=== PATIENT | male | born 1960 | race Caucasian/White ===

== ENCOUNTER → 2018-07-30 | Outpatient (REF) | payer MEDICARE, OTHER ==
[2018-07-30 16:12] LABS: BASO # 0.1 10^3/uL (0.0-0.2); BASO % 0.7 % (0.0-1.0); EOS # 0.5 10^3/uL (0.0-0.50); EOS % 5.1 % (0.0-3.0); HEMATOCRIT 38.8 % (42.0-52.0); LYMPH # 1.5 10^3/uL (1.5-4.5); LYMPH % 13.8 % (24.0-44.0); MEAN CORPUSCULAR HEMOGLOBIN 28.6 pg (27.0-33.0); MEAN CORPUSCULAR HGB CONC 30.9 g/dl (32.0-36.5); MEAN CORPUSCULAR VOLUME 92.6 fl (80.0-96.0); MONO # 1.1 10^3/uL (0.0-0.8); MONO % 10.7 % (0.0-5.0); NEUTROPHILS # 7.3 10^3/uL (1.8-7.7); PLATELET COUNT, AUTOMATED 246 10^3/uL (150-450); RED BLOOD COUNT 4.19 10^6/uL (4.30-6.10); WHITE BLOOD COUNT 10.5 10^3/uL (4.0-10.0)
[2018-07-30 16:30] LABS: ALBUMIN 3.9 GM/DL (3.2-5.2); ALT/SGPT 52 U/L (12-78); BILIRUBIN,TOTAL 0.2 MG/DL (0.2-1.0); BLOOD UREA NITROGEN 24 MG/DL (7-18); C REACTIVE PROTEIN QUANTITATIV 0.92 MG/DL (0.00-0.30); CALCIUM LEVEL 8.6 MG/DL (8.5-10.1); CARBON DIOXIDE LEVEL 31 MEQ/L (21-32); CHLORIDE LEVEL 106 MEQ/L (98-107); CREATININE FOR GFR 1.48 MG/DL (0.70-1.30); GLOMERULAR FILTRATION RATE 52.2 (>56); GLUCOSE, FASTING 181 MG/DL (70-100); IMMUNOGLOBULIN A 315 MG/DL (70-400); IMMUNOGLOBULIN G 1160 MG/DL (681-1648); IMMUNOGLOBULIN M 97 MG/DL (40-230); POTASSIUM SERUM 5.5 MEQ/L (3.5-5.1); SODIUM LEVEL 140 MEQ/L (136-145); TOTAL PROTEIN 7.5 GM/DL (6.4-8.2)
[2018-07-30 17:04] LABS: ERYTHROCYTE SEDIMENTATION RATE 42 mm/hr (0-20)
[2018-07-30 17:08] LABS: HIV 1&2 SCREEN CENTAUR NEGATIVE (NEGATIVE)
[2018-08-02 08:06] LABS: IgG SERUM (part of Subclasses) 1041 mg/dL (700-1600); IgG Subclass 1 500 mg/dL (248-810); IgG Subclass 2 159 mg/dL (130-555); IgG Subclass 3 26 mg/dL (15-102); IgG Subclass 4 27 mg/dL (2-96)
== END ==
LOC: M SFHCPLAZ 13:17
PROVIDERS: ATTEND Internal Medicine Infectious Disease
DX: L03.90 Cellulitis, unspecified (principal); M46.46 Discitis, unspecified, lumbar region
CPT/HCPCS: 36415; 80053; 82784; 82787; 85025; 85652; 86140; 87070; 87077; 87186; 87389; G0463

== ENCOUNTER → 2018-12-10 | Outpatient (REF) | payer MEDICARE, OTHER ==
[2018-12-10 18:29] LABS: BASO # 0.1 10^3/uL (0.0-0.2); BASO % 0.7 % (0.0-1.0); EOS # 0.4 10^3/uL (0.0-0.50); EOS % 4.7 % (0.0-3.0); HEMATOCRIT 41.8 % (42.0-52.0); HEMOGLOBIN 13.1 g/dl (13.5-17.5); LYMPH # 2.1 10^3/uL (1.5-4.5); LYMPH % 23.1 % (24.0-44.0); MEAN CORPUSCULAR HEMOGLOBIN 29.1 pg (27.0-33.0); MEAN CORPUSCULAR HGB CONC 31.3 g/dl (32.0-36.5); MEAN CORPUSCULAR VOLUME 92.9 fl (80.0-96.0); MONO # 1.1 10^3/uL (0.0-0.8); MONO % 12.8 % (0.0-5.0); NEUTROPHILS # 5.2 10^3/uL (1.8-7.7); NEUTROPHILS % 58.4 % (36.0-66.0); PLATELET COUNT, AUTOMATED 241 10^3/uL (150-450); WHITE BLOOD COUNT 8.9 10^3/uL (4.0-10.0)
[2018-12-10 18:49] LABS: ALBUMIN 3.6 GM/DL (3.2-5.2); ALT/SGPT 141 U/L (12-78); BILIRUBIN,TOTAL 0.3 MG/DL (0.2-1.0); BLOOD UREA NITROGEN 35 MG/DL (7-18); CALCIUM LEVEL 8.3 MG/DL (8.5-10.1); CARBON DIOXIDE LEVEL 23 MEQ/L (21-32); CHLORIDE LEVEL 110 MEQ/L (98-107); CPK CREATINE PHOSPHOKINASE 210 U/L (39-308); CREATININE FOR GFR 1.54 MG/DL (0.70-1.30); GLOMERULAR FILTRATION RATE 49.8 (>56); GLUCOSE, FASTING 186 MG/DL (70-100); SODIUM LEVEL 139 MEQ/L (136-145); TOTAL PROTEIN 7.3 GM/DL (6.4-8.2); TROPONIN I < 0.02 NG/ML (< 0.10)
[2018-12-10 19:07] LABS: ERYTHROCYTE SEDIMENTATION RATE 37 mm/hr (0-20)
== END ==
LOC: M SFHCPLAZ 14:23
PROVIDERS: ATTEND Internal Medicine Infectious Disease
DX: M46.46 Discitis, unspecified, lumbar region (principal); R07.89 Other chest pain; L03.90 Cellulitis, unspecified

== ENCOUNTER → 2019-03-21 | Outpatient (REF) | payer MEDICARE, OTHER | LOC: M SFHCPLAZ 11:58 | PROVIDERS: ATTEND Internal Medicine Infectious Disease | DX: Z22.321 Carrier or suspected carrier of Methicillin susceptible Staphylococcus aureus (principal) ==

== ENCOUNTER → 2019-09-05 | Outpatient (REF) | payer MEDICARE, OTHER | LOC: M SFHCPLAZ 11:30 | PROVIDERS: ATTEND Internal Medicine Infectious Disease | DX: Z22.321 Carrier or suspected carrier of Methicillin susceptible Staphylococcus aureus (principal) | CPT/HCPCS: 87070; G0463 ==